=== PATIENT | female | born 1985 | race Caucasian/White ===

== ENCOUNTER 2016-10-11 14:55 | Emergency (ER) | payer SELFPAY ==
[2016-10-11 14:59] VITALS: BP 110/69; PULSE 79; TEMP 98.5; BMI 23.6
--- NOTE | 2016-10-11 15:36 | PDOC ---
History of Present Illness - General History Source: Patient Exam Limitations: No Limitations - History of Present Illness Initial Comments: 10/11/16 16:22 The patient is a 31 year old female, LMP 4 days ago, with no significant past medical history, who presents to the ER with abdominal pain for two days. Patient states the pain is exacerbated while walking. She reports the abdominal pain is diffuse, more localized to the sides. Patient describes the pain as a stabbing sensation. She says she had accompanied 3-4 episodes of diarrhea and described it as watery diarrhea. Patient also says she has nausea, without vomiting. Patient reports the symptoms are similar to when she had appendicitis. Surgical Hx: Appendectomy, Denies vomiting Denies fever, chills, cough Denies vaginal discharge Denies dysuria, hematuria <Carrie Dupree - Last Filed: 10/11/16 17:01> <Kimber Lopez - Last Filed: 10/13/16 09:29> - General Chief Complaint: Pain, Acute Stated Complaint: ABD PAIN Time Seen by Provider: 10/11/16 15:36 Past History <Carrie Dupree - Last Filed: 10/11/16 17:01> - Past Medical History Other medical history: PATIENT DENIES MEDICAL HISTORY - Surgical History Appendectomy: Yes - Psycho/Social/Smoking Cessation Hx Suicidal Ideation: No Smoking History: Never smoked Information on smoking cessation initiated: No Hx Alcohol Use: No Drug/Substance Use Hx: No <Kimber Lopez - Last Filed: 10/13/16 09:29> - Past Medical History Allergies/Adverse Reactions: Allergies Allergy/AdvReac Type Severity Reaction Status Date / Time No Known Allergies Allergy Verified 10/11/16 14:59 Home Medications: Ambulatory Orders NK [No Known Home Medication] 10/11/16 Review of Systems - Review of Systems Able to Perform ROS?: Yes Comments:: 10/11/16 16:22 GENERAL/CONSTITUTIONAL: No fever or chills. No weakness. HEAD, EYES, EARS, NOSE AND THROAT: No change in vision. No ear pain or discharge. No sore throat. CARDIOVASCULAR: No chest pain or shortness of breath. RESPIRATORY: No cough, wheezing, or hemoptysis. GASTROINTESTINAL: (+) nausea, abdominal pain, diarrhea. No vomiting or constipation. GENITOURINARY: No dysuria, frequency, or change in urination. MUSCULOSKELETAL: No joint or muscle swelling or pain. No neck or back pain. SKIN: No rash NEUROLOGIC: No headache, vertigo, loss of consciousness, or change in strength/ sensation. ENDOCRINE: No increased thirst. No abnormal weight change. HEMATOLOGIC/LYMPHATIC: No anemia, easy bleeding, or history of blood clots. ALLERGIC/IMMUNOLOGIC: No hives or skin allergy. <[facility] - Last Filed: 10/11/16 17:01> *Physical Exam - Vital Signs Last Vital Signs Temp Pulse Resp BP Pulse Ox 98.5 F 79 18 110/69 100 10/11/16 14:57 10/11/16 14:57 10/11/16 14:57 10/11/16 14:57 10/11/16 14:57 - Physical Exam Comments: 10/11/16 16:25 GENERAL: Awake, alert, and fully oriented, in no acute distress HEAD: No signs of trauma EYES: PERRLA, EOMI, sclera anicteric, conjunctiva clear ENT: Auricles normal inspection, hearing grossly normal, nares patent, oropharynx clear without exudates. Moist mucosa NECK: Normal ROM, supple, no lymphadenopathy, JVD, or masses LUNGS: Breath sounds equal, clear to auscultation bilaterally. No wheezes, and no crackles HEART: Regular rate and rhythm, normal S1 and S2, no murmurs, rubs or gallops ABDOMEN: Diffusely tender without guarding or rebound. Nondistended, soft, normal bowel sounds. No CVA tenderness. No masses. EXTREMITIES: Normal range of motion, no edema. No clubbing or cyanosis. No cords, erythema, or tenderness NEUROLOGICAL: Cranial nerves II through XII grossly intact. Normal speech, normal gait SKIN: Warm, Dry, normal turgor, no rashes or lesions noted. Pelvic Exam: Minimal blood in the vaginal vault. Normal exam. <[facility] - Last Filed: 10/11/16 17:01> - Vital Signs Last Vital Signs Temp Pulse Resp BP Pulse Ox 98.5 F 79 18 110/69 100 10/11/16 14:57 10/11/16 14:57 10/11/16 14:57 10/11/16 14:57 10/11/16 14:57 <Kimber Lopez - Last Filed: 10/13/16 09:29> ED Treatment Course - LABORATORY CBC & Chemistry Diagram: 10/11/16 15:55 10/11/16 15:55 <Carrie Dupree - Last Filed: 10/11/16 17:01> - LABORATORY CBC & Chemistry Diagram: 10/11/16 15:55 10/11/16 15:55 <Kimber Lopez - Last Filed: 10/13/16 09:29> Medical Decision Making - Medical Decision Making 10/11/16 17:58 Pt presents to the ED complaining of upper abdominal pain for two days. Abdomen has mild diffuse tenderness. Pelvic exam shows no signs of PID. No urinary complaints. Differential includes biliary disease, pancreatitis, gastritis, ectopic . Will check labs and give toradol, reassess. Likely discharge home if labs show nor abnormalities. 10/11/16 18:51 Labs are normal except for heaturia. Patient is currently menstruating. test is negative. Feels improved. Will discharge patient home with instructions to return for new or worsening symptoms. <Kimber Lopez - Last Filed: 10/13/16 09:29> *DC/Admit/Observation/Transfer - Attestations Scribe Attestion: 10/11/16 16:26 Documentation prepared by Carrie Dupree, acting as biomedical manager for Kimber Lopez MD. <Carrie Dupree - Last Filed: 10/11/16 17:01> - Discharge Dispostion Admit: No <Kimber Lopez - Last Filed: 10/13/16 09:29> Diagnosis at time of Disposition: Abdominal pain - Discharge Dispostion Disposition: HOME Condition at time of disposition: Good - Patient Instructions Printed Discharge Instructions: DI for Abdominal Pain-Adult Additional Instructions: return to the ED for worsening pain, pain with fever, severe nausea and vomiting. Follow up with your primary care doctor within one week.
[2016-10-11] MEDS ORDERED: KETOROLAC TROMETHAMINE 30 MG/1 ML VIAL IVPUSH ONE (15:59)
[2016-10-11] MEDS ORDERED: SODIUM CHLORIDE 0.9% 1000 ML INFUS.BAG IV ONE (16:02)
[2016-10-11 16:36] LABS: BASOPHIL 0.5 % (0-2.0); MCH 28.1 pg (25.7-33.7); MCHC 32.4 g/dl (32.0-36.0); MEAN CELL VOLUME 86.7 fl (80-96); MEAN PLT VOLUME 8.2 fl (7.5-11.1); NEUTROPHILS 71.4 % (42.8-82.8); PLATELET COUNT 267 K/MM3 (134-434); RDW 13.4 % (11.6-15.6); WHITE BLOOD COUNT 6.5 K/mm3 (4.0-10.0)
[2016-10-11 17:06] LABS: ALBUMIN 3.7 g/dl (3.4-5.0); ALK PHOS 50 U/L (45-117); ANION GAP 10 (8-16); BILIRUBIN,TOTAL 0.6 mg/dL (0.2-1.0); CO2 28 mmol/L (21-32); CREATININE 0.7 mg/dL (0.55-1.02); GLUCOSE,RANDOM 82 mg/dL (74-106); SGOT/AST 11 U/L (15-37); SGPT/ALT 18 U/L (12-78); TOT PROT 7.1 g/dl (6.4-8.2)
[2016-10-11 17:52] LABS: URINE APPEARANCE CLEAR; URINE BILIRUBIN NEGATIVE (NEGATIVE); URINE COLOR LTYELLOW; URINE GLUCOSE (UA) NEGATIVE (NEGATIVE); URINE KETONE NEGATIVE (NEGATIVE); URINE LEUK ESTERASE NEGATIVE (NEGATIVE); URINE NITRITE NEGATIVE (NEGATIVE); URINE PROTEIN NEGATIVE (NEGATIVE); URINE UROBILINOGEN NEGATIVE E.U./dl (0.2-1.0)
[2016-10-11 17:58] LABS: URINE BLOOD 3+ (NEGATIVE)
[2016-10-11 17:59] LABS: URINE MUCUS RARE; URINE RBC 3 /hpf (0-3); URINE WBC 3 /hpf (3-5)
[2016-10-11] MEDS ORDERED: KETOROLAC TROMETHAMINE 30 MG/1 ML VIAL ONE (18:41)
== END 2016-10-11 18:58 | disposition home or self-care (01) ==
LOC: JER 14:55
PROC: 3E0333Z Introduction of Anti-inflammatory into Peripheral Vein, Percutaneous Approach (ICD-10-PCS; principal; 2016-10-11)
DX: R10.10 Upper abdominal pain, unspecified (principal)
CPT/HCPCS: 36415; 80053; 81003; 81015; 83690; 84703; 85025; 99282-25